=== PATIENT | female | born 1995 | race Caucasian/White ===

== ENCOUNTER → 2017-07-16 | Outpatient (CLI) | payer OTHER ==
--- NOTE | 2017-07-16 16:04 | US ---
EXAMINATION TYPE: US transvaginal DATE OF EXAM: 07/16/2017 COMPARISON: NONE CLINICAL HISTORY: N83.209 Ovarian Cyst. Patient states having a normal period in May, then star servando bleeding shortly afterward. TECHNIQUE: Transvaginal (TV) Date of LMP: 07/09/2017, G0 EXAM MEASUREMENTS: Uterus: 6.3 x 3.9 x 2.9 cm Endometrial Stripe: 0.7 cm Right Ovary: 2.9 x 2.2 x 2.1 cm Left Ovary: 2.4 x 1.8 x 1.9 cm 1. Uterus: Anteverted wnl 2. Endometrium: Hyperechoic oval vascular lesion seen = 1.1 x 1.1 x 0.6 cm 3. Right Ovary: Multiple follicles seen, largest= 1.3 cm 4. Left Ovary: wnl Spectral, color and waveform doppler imaging shows good arterial and venous flow within the ovaries ; there is no evidence for ovarian torsion. 5. Bilateral Adnexa: wnl 6. Posterior cul-de-sac: no free fluid Mid endometrial stripe is focally thickened measuring 0.7 cm. However, this measurement is within nor mal limits for patient of this age. IMPRESSION: 1. Right ovarian cyst measuring 1.3 cm. Follow-up following the next normal menstrual period is recom mended
== END | disposition home or self-care (01) ==
LOC: RADUSWWP 09:04
PROVIDERS: ATTEND Family Medicine
DX: N83.201 Unspecified ovarian cyst, right side (principal)
CPT/HCPCS: 76830

== ENCOUNTER → 2017-10-07 | Outpatient (CLI) | payer OTHER ==
--- NOTE | 2017-10-07 09:27 | US ---
EXAMINATION TYPE: US abdomen complete DATE OF EXAM: 10/07/2017 COMPARISON: NONE CLINICAL HISTORY: R10.13 epigastric pain. Pt states epigastric "burning" EXAM MEASUREMENTS: Liver Length: 14.5 cm Gallbladder Wall: 0.2 cm CBD: 0.4 cm Spleen: 10.7 cm Right Kidney: 9.1 x 4.0 x 4.0 cm Left Kidney: 10.5 x 5.5 x 5.0 cm Pancreas: wnl Liver: Hyperechoic lesion right posterior lobe= 1.1 x 1.1 x 1.4 cm Gallbladder: wnl Evidence for sonographic Sung's sign: No CBD: wnl Spleen: wnl Right Kidney: wnl Left Kidney: wnl Upper IVC: wnl Abd Aorta: wnl The liver is homogenous. Probable hepatic hemangioma noted. The intrahepatic portion of the IVC and p roximal abdominal aorta are within normal limits. There is no evidence of cholelithiasis. Common bi le duct is unremarkable. The visualized portions of the pancreas are homogenous. The spleen is unre markable. Kidneys are symmetric and free of hydronephrosis. No renal lesions are seen. IMPRESSION: 1. Probable hepatic hemangioma noted.
== END | disposition home or self-care (01) ==
LOC: RADUSWWP 08:57
DX: R10.13 Epigastric pain (principal)
CPT/HCPCS: 76700

== ENCOUNTER → 2017-10-20 | Outpatient (CLI) | payer OTHER ==
[2017-10-20 12:08] LABS: Basophils % (A) 1 %; Eosinophils # (A) 0.1 k/uL (0-0.7); Eosinophils % (A) 1 %; HCT 40.6 % (34.0-46.0); HGB 13.5 gm/dL (11.4-16.0); Lymphocytes # (A) 2.3 k/uL (1.0-4.8); Lymphocytes % (A) 31 %; MCH 29.2 pg (25.0-35.0); MCHC 33.2 g/dL (31.0-37.0); MCV 87.9 fL (80.0-100.0); Mean Platelet Volume 7.6; Monocytes # (A) 0.4 k/uL (0-1.0); Monocytes % (A) 5 %; Neutrophils # (A) 4.7 k/uL (1.3-7.7); Neutrophils % (A) 62 %; Platelet Count 308 k/uL (150-450); RBC 4.62 m/uL (3.80-5.40); RDW 13.6 % (11.5-15.5); WBC 7.6 k/uL (3.8-10.6)
== END | disposition home or self-care (01) ==
LOC: LABWHC1 11:01
PROVIDERS: ATTEND Obstetrics & Gynecology Obstetrics
DX: Z01.812 Encounter for preprocedural laboratory examination (principal); N84.0 Polyp of corpus uteri
CPT/HCPCS: 36415; 85025

== ENCOUNTER 2017-10-27 09:00 | Day surgery (SDC) | payer OTHER ==
[2017-10-22 12:53] VITALS: BMI 23.4
--- NOTE | 2017-10-26 16:29 | P.HPOB ---
History of Present Illness H&P Date: 10/26/17 Chief Complaint: menorrhagia, pelvic pain This is a 22yo G0 that presents with HMB, with clots. she had an us done in june revealing a large endometrial polyp 1.1cm. she notes LLQ pain in addition. using condoms for contraception she notes regular menses, with this last one heavy with clots. Review of Systems Constitutional: Denies chills, Denies fever Cardiovascular: Denies chest pain Respiratory: Denies cough, Denies dyspnea Gastrointestinal: Denies constipation, Denies diarrhea Genitourinary: Reports menorrhagia, Reports pelvic pain Past Medical History Past Medical History: GERD/Reflux History of Any Multi-Drug Resistant Organisms: None Reported Additional Past Surgical History / Comment(s): WISDOM TEETH-EXTRACTIONS Past Anesthesia/Blood Transfusion Reactions: No Reported Reaction Smoking Status: Never smoker - Past Family History Mother Family Medical History: No Reported History Medications and Allergies Home Medications Medication Instructions Recorded Confirmed Type Ranitidine HCl [Zantac] 150 mg PO DAILY PRN 10/22/17 10/22/17 History Allergies Allergy/AdvReac Type Severity Reaction Status Date / Time No Known Allergies Allergy Verified 10/22/17 12:31 Exam Osteopathic Statement: *. No significant issues noted on an osteopathic structural exam other than those noted in the History and Physical/Consult. Assessment and Plan (1) Endometrial polyp Narrative/Plan: plan H DC, surgery reviewed and questions answered Status: Acute Code(s): N84.0 - POLYP OF CORPUS UTERI SNOMED Code(s): 04842289 (2) Menorrhagia Status: Acute Code(s): N92.0 - EXCESSIVE AND FREQUENT MENSTRUATION WITH REGULAR CYCLE SNOMED Code(s): 755557070
[~2017-10-27 09:00] MED LIST: DEXAMETHASONE SOD PHOSPHATE 10 MG/ML 1 ML VIAL IV ONE; LACTATED RINGERS 1,000 ML IV SCH; MIDAZOLAM 2 MG/2 ML VIAL IV PRN; MORPHINE SULFATE 4 MG/ML SYRINGE IV PRN; ONDANSETRON 4 MG/2 ML VIAL IVP ONE; Pre Op ABX Message 1 EACH MISC MISCELLANE ONE; SCOPOLAMINE 1.5MG/72HR PATCH TRANSDERM ONE
[2017-10-27] MEDS ORDERED: LIDOCAINE 1% 20 ML VIAL (10MG/ML) FOR IV START INTRADERMA ONE (10:45)
[2017-10-27] MEDS ORDERED: PROPOFOL 10 MG/ML 20 ML VIAL IV ONE (11:11)
[2017-10-27] MEDS ORDERED: KETOROLAC 30 MG/ML 1 ML VIAL ONE (11:11)
[2017-10-27] MEDS ORDERED: MIDAZOLAM 2 MG/2 ML VIAL ONE (11:11)
[2017-10-27] MEDS ORDERED: fentaNYL (PF) 50 MCG/ML 2 ML AMP ONE (11:11)
--- NOTE | 2017-10-27 11:36 | P.OP ---
Date of Procedure: 10/27/17 Preoperative Diagnosis: Endometrial polyp Postoperative Diagnosis: Same Procedure(s) Performed: Hysteroscopy, dilation and curettage Anesthesia: MAC Surgeon: Jing Swain Estimated Blood Loss (ml): 5 IV fluids (ml): 400 Urine output (ml): 25 Pathology: other (Endometrial curettings) Condition: stable Disposition: PACU Indications for Procedure: Large endometrial polyp Operative Findings: Proliferative endometrium with polyp Description of Procedure: Patient was taken to the operating room where general anesthesia was obtained by the anesthesia department. She was then prepped and draped in normal sterile fashion in dorsal lithotomy position a red rubber catheter was then used to drain the bladder clearing all urine. Weighted speculum placed in the posterior vaginal vault the interval of the cervix grasped with a single-tooth tenaculum and the endocervical canal was then dilated. The hysteroscope was then advanced into the endometrial cavity the above-noted findings were visualized. A gentle curettage was then performed until all 4 quadrants were gritty in texture. At this time the single tooth tenaculum was removed from the anterior lip of the cervix and hemostasis was appreciated. The weighted speculum was removed from the vaginal vault next Counts are correct 2 patient tolerated procedure well
[2017-10-27 11:58] VITALS: TEMP 97.4
[2017-10-27 12:36] VITALS: RESP 18
[2017-10-27 13:14] VITALS: BP 102/66; PULSE 74
== END 2017-10-27 13:31 | disposition home or self-care (01) ==
LOC: OR 09:00
PROVIDERS: ATTEND Obstetrics & Gynecology Obstetrics
DX: N84.0 Polyp of corpus uteri (principal); N92.0 Excessive and frequent menstruation with regular cycle; K21.9 Gastro-esophageal reflux disease without esophagitis
CPT/HCPCS: 81025; 88305; 58558; J2250; J1100; J2405; J3010; J1885; J2704